=== PATIENT | male | born 1990 | race Caucasian/White ===

== ENCOUNTER 2019-05-19 13:33 | Emergency (ER) | payer BC ==
[~2019-05-19] VITALS: Ht 190.5 cm; Wt 114.4 kg
[~2019-05-19 13:33] MED LIST: NO MEDS
[2019-05-19 13:54] VITALS: BP 123/73; PULSE 85; RESP 16; Ht 190.5 cm; Wt 114.4 kg
[2019-05-19] MEDS ORDERED: IBUP-1542 PO (15:27)
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
== END 2019-05-19 15:36 | disposition home or self-care (01) ==
LOC: FTE 13:33
DX: S19.9XXA Unspecified injury of neck, initial encounter (principal); S09.90XA Unspecified injury of head, initial encounter; V89.2XXA Person injured in unspecified motor-vehicle accident, traffic, initial encounter
CPT/HCPCS: 72040